=== PATIENT | female | born 1980 | race Two or more races ===

== ENCOUNTER 2023-06-29 05:33 | Day surgery (SDC) | payer OTHER ==
[~2023-06-29] VITALS: Ht 160 cm; Wt 81.6 kg
[2023-06-29] MEDS ORDERED: CIPRO500 MG PO (12:09)
[2023-06-29] MEDS ORDERED: IBU600 MG PO (12:12)
== END 2023-06-29 18:30 | disposition home or self-care (01) ==
LOC: CIR.AMB 05:33
PROVIDERS: ATTEND Obstetrics & Gynecology Gynecology
DX: N81.12 Cystocele, lateral (principal); N39.3 Stress incontinence (female) (male); Z88.8 Allergy status to other drugs, medicaments and biological substances; Z20.822 Contact with and (suspected) exposure to COVID-19
CPT/HCPCS: 57240; 57288; C1771